=== PATIENT | female | born 1980 | race Caucasian/White ===

== ENCOUNTER → 2016-11-26 | Outpatient (CLI) | payer OTHER ==
[~2016-11-26] MED LIST: FLEXERIL 1010 MG/TAB PO; LIDODERM 5% PATC1 EA TP; NORCO 325 MG-51 TAB PO; SOMA250 MG PO; ULTRAM 50MG TAB50 MG PO; VOLTAREN 75 DR75 MG PO
== END ==
LOC: COL.LAB 18:57
DX: M79.661 Pain in right lower leg (principal)